=== PATIENT | female | born 1975 | race Caucasian/White ===

== ENCOUNTER 2016-09-04 12:50 | Emergency (ER) | payer BC ==
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
--- NOTE | 2016-09-04 14:33 | RAD ---
Indication: Foot pain, foot injury. 3 views of the left foot demonstrates lucent lesion in the proximal and of the proximal phalanx of the fourth digit. A nondisplaced pathologic fracture is not excluded. No other fractures are noted. IMPRESSION: Lucent lesion measuring 5 mm in the proximal end of the proximal phalanx of the fifth digit. There is some cortical breakthrough and pathologic fracture is not excluded.
[2016-09-04 15:18] VITALS: BP 123/78
== END 2016-09-04 15:19 | disposition home or self-care (01) ==
LOC: UCCORT 12:50
DX: S92.352A Displaced fracture of fifth metatarsal bone, left foot, initial encounter for closed fracture (principal); W22.8XXA Striking against or struck by other objects, initial encounter; Y93.9 Activity, unspecified; Y92.9 Unspecified place or not applicable; Z88.1 Allergy status to other antibiotic agents; Z87.891 Personal history of nicotine dependence
CPT/HCPCS: 99212; G0463

== ENCOUNTER 2017-05-13 09:07 | Emergency (ER) | payer BC | END 2017-05-13 10:20 | disposition left against medical advice (07) | LOC: UCCORT 09:07 | DX: J02.9 Acute pharyngitis, unspecified (principal); Z53.21 Procedure and treatment not carried out due to patient leaving prior to being seen by health care provider ==